=== PATIENT | male | born 1995 | race Caucasian/White ===

== ENCOUNTER 2024-08-14 06:35 | Outpatient (CLI) | payer BC, MEDICAID, SELFPAY ==
--- NOTE | 2024-08-14 06:44 | US_ITS ---
WS: [id number] ULTRASOUND SOFT TISSUES posterior calvarium HISTORY: SubQ head/neck mass COMPARISON: None available. TECHNIQUE: 2-D and color Doppler imaging is submitted. There is a palpable area over the posterior LEFT calvarium. Ultrasound is directed to this area as in dicated by the patient. There is a solid appearing mass which is ovoid in shape with mild heterogeneity. Mass is predominantl y hypoechoic with a few scattered more cystic components. Mass measures 3.3 x 3.3 x 1.1 cm. No increa sed vascularity is identified. This does not have a typical appearance of a lymph node. US/US soft tissue head neck [id number] IMPRESSION: 1. Solid-appearing mass without increased vascularity over the posterior LEFT scalp. Nonspecific in appearance but this needs to be further evaluated. Differ ential includes hematoma, abnormal lymph node or tumor (benign or malignant). R ecommend follow-up head CT with and without contrast. Depending on the CT findi ngs MRI may also be of benefit.
== END 2024-08-14 06:36 | disposition home or self-care (01) ==
LOC: RAD 06:36
PROVIDERS: Visit Provider Nurse Practitioner Family
DX: R22.0 Localized swelling, mass and lump, head (principal)
CPT/HCPCS: 76536

== ENCOUNTER 2024-09-13 15:05 | Outpatient (CLI) | payer BC, MEDICAID, SELFPAY ==
--- NOTE | 2024-09-13 15:09 | CTR_ITS ---
PROCEDURE INFORMATION: Exam: CT Head Without Contrast Exam date and time: 09/13/2024 3:19 PM Age: 28 years old Clinical indication: Mass, lump, or localized swelling; Patient HX: Pain and swelling left posterior aspect x 2 months, no swelling today TECHNIQUE: Imaging protocol: Computed tomography of the head without contrast. Radiation optimization: All CT scans at this facility use at least one of these dose optimization techniques: automated exposure control; mA and/or kV adjustment per patient size (includes targeted exams where dose is matched to clinical indication); or iterative reconstruction. COMPARISON: US soft tissue head neck [id number] 08/14/2024 6:48 AM RADIATION DOSE METRICS: Total DLP (mGy-cm): 1135.79 FINDINGS: Brain: No acute intracranial hemorrhage. No confluent lobar infarct. No mass effect. Cerebral ventricles: The ventricles and sulci are normal in size and shape for the patient's stated age. Paranasal sinuses: No fluid levels. Mastoid air cells: Visualized mastoid air cells are well aerated. Bones: No acute calvarial fracture. Soft tissues: In the subcutaneous tissues of the posterior left neck, there is a soft tissues density measuring up to 2.9 x 1.0 cm corresponding to findings seen on prior ultrasound. CT/CT head wo con* [id number] IMPRESSION: 1. No acute intracranial abnormality. If symptoms persist, consider further evaluation with MRI, if MRI is clinically safe to obtain. 2. Nonspecific soft tissue density in the subcutaneous tissues of the posterior left neck of unclear etiology and significance. This may represent an area of focal scarring or evolving hematoma. Other etiologies including mass lesion cannot be entirely excluded. Recommend clinical correlation and follow-up imaging as clinically warranted.
== END 2024-09-13 15:06 | disposition home or self-care (01) ==
LOC: RAD 15:06
PROVIDERS: PCP Nurse Practitioner Family; Visit Provider Nurse Practitioner Family
DX: R22.1 Localized swelling, mass and lump, neck (principal)
CPT/HCPCS: 70450